=== PATIENT | female | born 1990 | race Caucasian/White ===

== ENCOUNTER 2020-04-17 08:53 | Emergency (ER) | payer OTHER ==
[2020-04-17] MEDS ORDERED: solu-MEDROL 125 MG IM ONE (09:20)
[2020-04-17] MEDS ORDERED: Pepcid 20 MG PO ONE (09:20)
--- NOTE | 2020-04-17 09:20 | ERPHSYRPT ---
- History of Present Illness Time Seen by Provider: 04/17/20 09:15 Source: patient Exam Limitations: no limitations Physician History: 49-year-old female who yesterday morning had a lemon bar for breakfast and then a few hours later at work broke out in generalized hives. These are continued and this morning were worse she has some slight swelling of her eyes she denies any difficulty breathing speaking etc. no wheezing. Hives or allergic reactions. Timing/Duration: yesterday, worse Quality: itchy, painful Severity: moderate Location: generalized Possible Causes: no cause identified Associated Symptoms: hives, rash, No difficulty breathing Allergies/Adverse Reactions: cefaclor [From Ceclor] Allergy (Unknown, Verified 09/28/14 13:26) Penicillins Allergy (Unknown, Verified 09/28/14 13:26) Hx Tetanus, Diphtheria Vaccination/Date Given: Yes (< 5 YRS) Hx Influenza Vaccination/Date Given: No Hx Pneumococcal Vaccination/Date Given: No - Review of Systems Constitutional: No Fever, No Chills Eyes: No Symptoms Ears, Nose, & Throat: No Symptoms Respiratory: No Cough, No Dyspnea Cardiac: No Chest Pain, No Edema, No Syncope Abdominal/Gastrointestinal: No Abdominal Pain, No Nausea, No Vomiting, No Diarrhea Genitourinary Symptoms: No Dysuria Musculoskeletal: No Back Pain, No Neck Pain Skin: Pruritis, Rash Neurological: No Dizziness, No Focal Weakness, No Sensory Changes Psychological: No Symptoms Endocrine: No Symptoms All Other Systems: Reviewed and Negative - Past Medical History Pertinent Past Medical History: Yes Neurological History: No Pertinent History ENT History: No Pertinent History Cardiac History: No Pertinent History Respiratory History: No Pertinent History Endocrine Medical History: Hypothyroidism Musculoskeletal History: No Pertinent History GI Medical History: No Pertinent History History: No Pertinent History Psycho-Social History: No Pertinent History Female Reproductive Disorders: No Pertinent History Other Medical History: VAGINAL DELIVERY X 2 - Past Surgical History Past Surgical History: No - Social History Smoking Status: Former smoker Exposure to second hand smoke: No Drug Use: none Patient Lives Alone: No - Physical Exam General Appearance: mild distress, alert Eye Exam: PERRL/EOMI, eyes nml inspection Ears, Nose, Throat Exam: normal ENT inspection, pharynx normal, moist mucous membranes Neck Exam: normal inspection, non-tender, supple, full range of motion Respiratory Exam: normal breath sounds, lungs clear, No respiratory distress Cardiovascular Exam: regular rate/rhythm, normal heart sounds Gastrointestinal/Abdomen Exam: soft, mass, No tenderness Back Exam: normal inspection, normal range of motion, No CVA tenderness, No vertebral tenderness Extremity Exam: normal inspection, normal range of motion Neurologic Exam: alert, oriented x 3, cooperative, normal mood/affect, sensation nml, No motor deficits Skin Exam: rash (Patient has a generalized urticarial type rash blanches with pressure there is wheal and flare response.) Lymphatic Exam: adenopathy SpO2 Interpretation: normal O2 Delivery: Room Air - Course Nursing assessment & vital signs reviewed: Yes - Progress Progress: unchanged - Departure Departure Disposition: Home Clinical Impression: Urticaria Condition: Stable Critical Care Time: No Referrals: OSMAN JOVEL MD [Primary Care Provider] - Instructions: Hugh (DC) Prescriptions: Diphenhydramine HCl 25 mg [Benadryl 25 mg Capsule] 25 mg PO Q4H PRN PRN 5 Days #20 capsule PRN Reason: Itching Prednisone 10 mg [Deltasone 10 mg] 10 mg PO TID #12 tablet Famotidine 20 mg [Pepcid 20 MG] 20 mg PO BID #60 tablet
[2020-04-17] MEDS ORDERED: BENADRYL 25 MG CAPSULE PO ONE (09:21)
[2020-04-17] MEDS ORDERED: BENADRYL 25 MG CAPSULE ONE (09:24)
[2020-04-17] MEDS ORDERED: solu-MEDROL 125 MG ONE (09:24)
[2020-04-17] MEDS ORDERED: Pepcid 20 MG ONE (09:24)
[2020-04-17 09:25] VITALS: O2SAT 99
[2020-04-17 09:56] VITALS: BP 125/78; PULSE 76
== END 2020-04-17 09:55 | disposition home or self-care (01) ==
LOC: ED 08:53
DX: L50.9 Urticaria, unspecified (principal)
CPT/HCPCS: 96372; 99284; J2930; A9270-GY

== ENCOUNTER 2021-10-28 21:27 | Emergency (ER) | payer BC, OTHER ==
[2021-10-28 21:44] VITALS: BP 140/87; PULSE 92; O2SAT 97
--- NOTE | 2021-10-28 22:14 | ERPHSYRPT ---
- History of Present Illness Time Seen by Provider: 10/28/21 21:39 Source: patient Exam Limitations: no limitations Patient Subjective Stated Complaint: " I cut my finger on a green sung can" . Triage Nursing Assessment: Pt presents to ER with complaints right second digit laceration that occurred at approx 1800 this evening while opening a green sung can. No bleeding noted, laceration is approx 1cm in length and 2mm in depth. Pt is alert and oriented x3. Skin is pink, warm, and dry. Respirations unlabored at this time. States pain is minimal at 2/10 scale. Physician History: 31 years old female up-to-date with tetanus presented in the ER with chief complaint of left hand index finger tip laceration while opening a metal cane prior to arrival. There was bleeding initially but stopped with applying pressure. Complaining of dull aching mild pain. Timing/Duration: today, sudden Quality: painful Severity: mild Location: hands Possible Causes: other Associated Symptoms: denies symptoms Allergies/Adverse Reactions: cefaclor [From [facility]] Allergy (Unknown, Verified 10/28/21 21:40) Penicillins Allergy (Unknown, Verified 10/28/21 21:40) Home Medications: Escitalopram Oxalate [Lexapro] 25 mg PO DAILY 04/17/20 [History] Norgestimate-Ethinyl Estradiol [Sprintec 28 Day Tablet] 1 each PO DAILY 04/17/20 [History] Bupropion HCl Xl 150 mg [Wellbutrin XL 150 MG] 300 mg PO DAILY 10/28/21 [History] Hx Tetanus, Diphtheria Vaccination/Date Given: No Hx Influenza Vaccination/Date Given: No Hx Pneumococcal Vaccination/Date Given: No Immunizations Up to Date: Yes Travel Risk - International Travel Have you traveled outside of the country in past 3 weeks: No - Coronavirus Screening Are you exhibiting any of the following symptoms?: No Close contact with a COVID-19 positive Pt in past 14-21 Days: No - Vaccine Status Have you recieved a Covid-19 vaccination: No - Review of Systems Constitutional: No Symptoms Ears, Nose, & Throat: No Symptoms Respiratory: No Symptoms Cardiac: No Symptoms Abdominal/Gastrointestinal: No Symptoms Musculoskeletal: Injury Skin: Skin Lesions Neurological: No Symptoms Psychological: No Symptoms Hematologic/Lymphatic: No Symptoms - Past Medical History Pertinent Past Medical History: No Neurological History: No Pertinent History ENT History: No Pertinent History Cardiac History: No Pertinent History Respiratory History: No Pertinent History Endocrine Medical History: Hypothyroidism Musculoskeletal History: No Pertinent History GI Medical History: No Pertinent History History: No Pertinent History Psycho-Social History: No Pertinent History Female Reproductive Disorders: No Pertinent History Other Medical History: VAGINAL DELIVERY X 2 - Past Surgical History Past Surgical History: No - Social History Smoking Status: Never smoker Exposure to second hand smoke: No Drug Use: none Patient Lives Alone: No - Female History Hx Last Menstrual Period: 06/23/2021 Hx Now: No - Nursing Vital Signs Nursing Vital Signs: Initial Vital Signs Temperature 97 F 10/28/21 21:36 Pulse Rate 92 H 10/28/21 21:36 Respiratory Rate 18 10/28/21 21:36 Blood Pressure 140/87 10/28/21 21:36 O2 Sat by Pulse Oximetry 97 10/28/21 21:36 Pain Scale Pain Intensity 2 - Physical Exam General Appearance: no apparent distress, alert Eye Exam: PERRL/EOMI Neck Exam: normal inspection, non-tender, supple, full range of motion Respiratory Exam: normal breath sounds, lungs clear Cardiovascular Exam: regular rate/rhythm, normal heart sounds Extremity Exam: tenderness, other (0.5 cm vertical laceration at the tip of left index. No damage to the nail. No active bleeding or spurting.) Neurologic Exam: alert, oriented x 3, cooperative Skin Exam: normal color SpO2 Interpretation: normal SpO2: 97 O2 Delivery: Room Air Procedures - Laceration/Wound Repair Left Finger Time of Procedure: 22:03 Wound Location: Left, hand Wound Length (cm): 0.5 Wound's Depth, Shape: superficial Wound Explored: clean Irrigated: Yes Hibiclens Prep: Yes Anesthesia: 1% Lidocaine Volume Anesthetic (ccs): 3 Wound Repaired With: sutures Suture Size/Type: 3-0, nylon Number of Sutures: 2 Sterile Dressing Applied?: Yes - Progress Progress: improved Progress Note: 10/28/21 22:13 Laceration is repaired. Outpatient follow-up. Counseled pt/family regarding: diagnosis, need for follow-up - Departure Departure Disposition: Home Clinical Impression: Finger laceration Qualifiers: Encounter type: initial encounter Finger: index finger Damage to nail status: without damage Foreign body presence: without foreign body Laterality: left Qualified Code(s): S61.163A - Laceration without foreign body of left index finger without damage to nail, initial encounter Condition: Stable Critical Care Time: No Referrals: OSMAN JOVEL MD [Primary Care Provider] - Follow Up with PCP/3 days Instructions: Laceration Repair With Stitches (DC) Additional Instructions: Tylenol/ibuprofen as needed for pain. Follow-up with primary care for reevaluation. Suture removal in 10 to 14 days. Watch for signs of infection like increasing redness swelling discharge/pain/fever chills and return to ER.
== END 2021-10-28 22:45 | disposition home or self-care (01) ==
LOC: ED 21:27
DX: S61.211A Laceration without foreign body of left index finger without damage to nail, initial encounter (principal); W26.8XXA Contact with other sharp object(s), not elsewhere classified, initial encounter; Y93.G1 Activity, food preparation and clean up
CPT/HCPCS: 12001; 99283